=== PATIENT | female | born 1970 | race Caucasian/White ===

== ENCOUNTER 2022-05-17 08:05 | Emergency (ER) | payer OTHER ==
[~2022-05-17] VITALS: Ht 157.5 cm; Wt 54.5 kg
[2022-05-17 08:19] VITALS: BP 131/86
[2022-05-17 08:30] VITALS: BP 125/89
[2022-05-17 09:01] VITALS: BP 112/74
[2022-05-17 09:34] VITALS: BP 112/74
== END 2022-05-17 09:34 | disposition home or self-care (01) | DRG 556 ==
LOC: ED 08:05
DX: M25.571 Pain in right ankle and joints of right foot (principal); M79.671 Pain in right foot; F17.210 Nicotine dependence, cigarettes, uncomplicated; V43.52XA Car driver injured in collision with other type car in traffic accident, initial encounter

== ENCOUNTER 2022-05-24 12:31 | Emergency (ER) | payer OTHER ==
[~2022-05-24] VITALS: Ht 157.5 cm; Wt 58.0 kg
[2022-05-24 12:51] VITALS: BP 132/88
[2022-05-24 13:00] VITALS: BP 131/105
[2022-05-24] MEDS ORDERED: TRAMADOL HYDROC50 M1 PO (14:41)
[2022-05-24 14:59] VITALS: BP 131/105
== END 2022-05-24 15:00 | disposition home or self-care (01) | DRG 556 ==
LOC: ED 12:31
DX: M25.571 Pain in right ankle and joints of right foot (principal); M25.551 Pain in right hip; M54.2 Cervicalgia; V43.52XA Car driver injured in collision with other type car in traffic accident, initial encounter